=== PATIENT | male | born 1970 | race African-American/Black ===

== ENCOUNTER 2025-05-31 22:08 | Emergency (ER) | payer MEDICAID ==
[~2025-05-31] VITALS: Ht 175.3 cm; Wt 120.0 kg
[2025-05-31 22:27] VITALS: O2SAT 98
[2025-05-31] MEDS: KETOROLAC 15MG/ML VIAL IM ONE (23:57)
[2025-06-01] MEDS: ACETAMINOPHEN 325MG TABLET PO ONE (00:22)
[2025-06-01] MEDS: TETANUS, DIPHTHERIA, PERTUSSIS VAC/PF 0.5ML (>10YR OLD) IM ONE (00:23)
[2025-06-01] MEDS: LIDOCAINE HCL 1% 20ML VIAL INL ONE (00:30)
[2025-06-01] MEDS ORDERED: SULF1TAB48 MT (04:03)
[2025-06-01] MEDS ORDERED: HYDR-4009 MT (04:03)
[2025-06-01] MEDS ORDERED: CEPH500T MT (04:03)
[2025-06-01] MEDS ORDERED: BO1 TP (04:07)
[2025-06-01] MEDS: BACITRACIN ZINC OINT UDPKT TOP ONE (04:21)
[2025-06-01 04:36] VITALS: BP 174/88; PULSE 67; RESP 18; TEMP 36.8; O2SAT 98
== END 2025-06-01 04:35 | disposition home or self-care (01) ==
LOC: ER 22:08
DX: S62.667A Nondisplaced fracture of distal phalanx of left little finger, initial encounter for closed fracture (principal); S61.217A Laceration without foreign body of left little finger without damage to nail, initial encounter; I10 Essential (primary) hypertension; W27.0XXA Contact with workbench tool, initial encounter; Y93.89 Activity, other specified; Y92.89 Other specified places as the place of occurrence of the external cause; Y99.8 Other external cause status; Z79.899 Other long term (current) drug therapy
CPT/HCPCS: 12002; 96372; 99284; 82962; 73140; 90715; 90471; J1885; J2003; Z7610 ×3; A6449